=== PATIENT | male | born 1940 | race Caucasian/White ===

== ENCOUNTER → 2016-10-02 | Outpatient (CLI) | payer OTHER, BC ==
[~2016-10-02] MED LIST: ASPEC325 PO; FLVHFA220 INH; MEDLIST; METO25TA56 PO; Proventil HFA; SNG10 PO
--- NOTE | 2016-10-02 09:40 | DIAGNOSTIC IMAGING REPORT ---
TWO VIEW CHEST CLINICAL HISTORY: Cough. FINDINGS: PA and lateral chest radiographs are compared to study dated 06/19/2008. The cardiomediastinal silhouette is unremarkable. There is atherosclerotic calcification of the thoracic aorta. Emphysema and chronic interstitial thickening are similar to previous. There is no evidence of superimposed airspace consolidation or pleural effusion. There is no pneumothorax. The skeletal structures are osteopenic. The bony thorax appears intact. IMPRESSION: Emphysema with no acute cardiopulmonary abnormality. Electronically signed by: Cedric Guardado M.D. 10/02/2016 9:38 AM Dictated Date/Time: 10/02/2016 9:35 AM
== END | disposition home or self-care (01) ==
LOC: C.RAD1850 09:22
PROVIDERS: ATTEND Physician Assistant Medical
DX: R05 Cough (principal); J43.9 Emphysema, unspecified

== ENCOUNTER 2017-05-29 14:10 | Emergency (ER) | payer OTHER, BC ==
[~2017-05-29] VITALS: Ht 175.3 cm; Wt 68.0 kg
[2017-05-29 14:14] VITALS: Ht 175.3 cm; Wt 68.0 kg
--- NOTE | 2017-05-29 14:53 | DIAGNOSTIC IMAGING REPORT ---
PELVIS 1 OR 2 VIEW ROUTINE CLINICAL HISTORY: eval for fx trauma. Pain. COMPARISON: None. DISCUSSION: The bones and joint spaces appear intact. There is no evidence of fracture, dislocation or bony disease. There is no evidence for soft tissue swelling. IMPRESSION: Negative study. The above report was generated using voice recognition software. It may contain grammatical, syntax or spelling errors. Electronically signed by: Christopher Batista M.D. 05/29/2017 2:51 PM Dictated Date/Time: 05/29/2017 2:51 PM
--- NOTE | 2017-05-29 14:54 | DIAGNOSTIC IMAGING REPORT ---
L-SPINE MIN 4 VIEWS ROUTINE HISTORY: Trauma eval for fx COMPARISON: None. FINDINGS: There is no fracture. No subluxation. Moderate degenerative disc changes throughout. Moderate degenerative change posterior elements. IMPRESSION: Degenerative change. No acute process. The above report was generated using voice recognition software. It may contain grammatical, syntax or spelling errors. Electronically signed by: Christopher Batista M.D. 05/29/2017 2:53 PM Dictated Date/Time: 05/29/2017 2:52 PM
--- NOTE | 2017-05-29 15:01 | DIAGNOSTIC IMAGING REPORT ---
SACRUM COCCYX MIN 2 VIEWS CLINICAL HISTORY: Lower back pain status post fall. COMPARISON STUDY: CT of the abdomen and pelvis May 14, 2010. FINDINGS: Sacroiliac joints are intact. No fracture of the sacrum or coccyx is identified by radiography. IMPRESSION: No sacral or coccygeal fracture identified by radiography. Electronically signed by: Fredis Farmer M.D. 05/29/2017 3:00 PM Dictated Date/Time: 05/29/2017 2:58 PM
[2017-05-29 15:10] VITALS: BP 132/74; PULSE 72; TEMP 36.8; O2SAT 94
[2017-05-29] MEDS ORDERED: FLVHFA44 INH (15:29)
[2017-05-29] MEDS ORDERED: TAMS0.4C38 PO (15:29)
[2017-05-29] MEDS ORDERED: MONT1TAB3 PO (15:29)
[2017-05-29] MEDS ORDERED: FLUT0.15 (15:29)
[2017-05-29] MEDS ORDERED: ASPI81TA28 PO (15:29)
[2017-05-29] MEDS ORDERED: VNTHFA/IN INH (15:29)
[2017-05-29] MEDS ORDERED: ATOR-22 PO (15:29)
[2017-05-29] MEDS ORDERED: DILT60CA PO (15:29)
--- NOTE | 2017-05-30 13:28 | EMERGENCY ROOM VISIT NOTE ---
History Report prepared by Raj: Lynsey Moser Under the Supervision of: Dr. Kyle Robert M.D. First contact with patient: 14:17 Chief Complaint: FALL Stated Complaint: FALL -SHARP PAIN IN LOWER BACK History of Present Illness The patient is a 77 year old male who presents to the Emergency Room with complaints of persistent left lower back pain that occurred after a fall earlier today. The patient states that this morning he slipped on ice, noting he landed on his buttocks. He denies hitting his head or neck, having any abdominal or chest pain, and any numbness or weakness in his legs. The patient states he is not a smoker. Source of History: patient Onset: today Position: back (lower) Timing: other (persistent) Associated Symptoms: No neck pain, No chest pain, No abdominal pain, No weakness, No numbness Review of Systems See HPI for pertinent positives & negatives. A total of 10 systems reviewed and were otherwise negative. Past Medical & Surgical Medical Problems: (1) No Known Active Medical Problems Social History Smoking Status: Never Smoker Smokeless Tobacco Use: No Alcohol Use: none Drug Use: none Marital Status: Occupation Status: retired Current/Historical Medications Scheduled Aspirin (Aspirin Ec), 81 MG PO DAILY Atorvastatin (Lipitor), 20 MG PO DAILY Diltiazem Hcl (Diltiazem Hcl Er), 60 MG PO DAILY Fluticasone Propionate (Flovent Hfa), 1 PUFFS INH BID Montelukast Sodium (Singulair), 10 MG PO DAILY Tamsulosin Hcl (Flomax), 0.4 MG PO DAILY Scheduled PRN Albuterol Hfa (Ventolin Hfa), 2 PUFFS INH Q6H PRN for SOB/Wheezing Fluticasone Propionate (Nasal) (Flonase Allergy Relief), 2 SPRAYS NA DAILY PRN for Nasal Congestion Allergies Coded Allergies: No Known Allergies (Verified , 06/04/11) Physical Exam Vital Signs Date Time Temp Pulse Resp B/P (MAP) Pulse Ox O2 Delivery O2 Flow Rate FiO2 05/29/17 15:10 36.8 72 18 132/74 94 Room Air 05/29/17 14:14 36.5 72 18 129/72 95 Room Air Physical Exam Constitutional: Vital signs reviewed. Eyes: Pupils are equal round reactive to light. Conjunctiva are noninjected. ENT: Pharynx is clear without erythema or exudate. Mucous membranes are moist. Neck supple without meningeal signs. Respiratory: Clear to auscultation bilaterally. Breath sounds are equal bilaterally. Cardiovascular: Regular rate and rhythm. No rubs or gallops. GI: Soft, nondistended and nontender. Bowel sounds are present. Musculoskeletal: No midline tenderness to the lumbosacral spine. Mild tenderness to the left SI joint. No hip tenderness. Integumentary: No cyanosis. Neurological: The patient is awake and alert. No focal deficits. Motor and sensation are intact in lower extremities. Psychiatric: Normal affect. Medical Decision & Procedures ER Provider Diagnostic Interpretation: Radiology results as stated below per my review and the radiologist's interpretation: SACRUM COCCYX MIN 2 VIEWS CLINICAL HISTORY: Lower back pain status post fall. COMPARISON STUDY: CT of the abdomen and pelvis May 14, 2010. FINDINGS: Sacroiliac joints are intact. No fracture of the sacrum or coccyx is identified by radiography. IMPRESSION: No sacral or coccygeal fracture identified by radiography. Electronically signed by: Fredis Farmer M.D. 05/29/2017 3:00 PM L-SPINE MIN 4 VIEWS ROUTINE HISTORY: Trauma eval for fx COMPARISON: None. FINDINGS: There is no fracture. No subluxation. Moderate degenerative disc changes throughout. Moderate degenerative change posterior elements. IMPRESSION: Degenerative change. No acute process. The above report was generated using voice recognition software. It may contain grammatical, syntax or spelling errors. Electronically signed by: Christopher Batista M.D. 05/29/2017 2:53 PM PELVIS 1 OR 2 VIEW ROUTINE CLINICAL HISTORY: eval for fx trauma. Pain. COMPARISON: None. DISCUSSION: The bones and joint spaces appear intact. There is no evidence of fracture, dislocation or bony disease. There is no evidence for soft tissue swelling. IMPRESSION: Negative study. The above report was generated using voice recognition software. It may contain grammatical, syntax or spelling errors. Electronically signed by: Christopher Batista M.D. 05/29/2017 2:51 PM ED Course 1421: The patient was evaluated in room A10. A complete history and physical exam was performed. 1530: I reevaluated the patient, who was resting comfortably. 1556: Upon reevaluation, the patient appeared to have improvement of his symptoms. I discussed tonight's findings with him. The patient verbalized agreement of the treatment plan. He was discharged home. Medical Decision This is a 77-year-old male who presents with injuries after fall. Differential diagnosis includes contusion, compression fracture, intervertebral disc disease , sacroiliitis, pelvic fracture. I did perform a limited focused review of portions of the patient's old chart on the electronic medical record. The patient has had no recent pertinent visits to this hospital. I did evaluate the patient as noted above. The patient is presenting with low back pain after falling onto his buttocks. He slipped on ice. It was a mechanical fall. He denies any other injuries. He has no headache or neck pain. He is neurologically intact. I did order and personally review the patient's x-rays as described above. There is no evidence of fracture or dislocation. I did discuss the test results with the patient. I did recommend he follow closely with his doctor. Should he have persistent pain he may need repeat imaging or advanced imaging. He was discharged in good condition. Medication Reconcilliation Current Medication List: was personally reviewed by me Blood Pressure Screening Patient's blood pressure: Normal blood pressure Impression Primary Impression: Low back pain Additional Impression: Fall Scribe Attestation The scribe's documentation has been prepared under my direct and personally reviewed by me in its entirety. I confirm that the note above accurately reflects all work, treatment, procedures, and medical decision making performed by me. Departure Information Dispostion Home / Self-Care Referrals Paco Terrell M.D. (PCP) Forms HOME CARE DOCUMENTATION FORM, IMPORTANT VISIT INFORMATION Patient Instructions My [facility] Additional Instructions You have been examined and treated today on an emergency basis only. This is not a substitute for, or an effort to provide, complete comprehensive medical care. It is impossible to recognize and treat all injuries or illnesses in a single emergency department visit. It is therefore important that you follow up closely with your physician. Call as soon as possible for an appointment. Return for worsening symptoms or if you develop fever, vomiting, abdominal pain , loss of control of your bowel or bladder, numbness or weakness to your legs, numbness to your private area, difficulty urinating, or any other concerning symptoms. Problem Qualifiers Primary Impression: Low back pain Chronicity: acute Back pain laterality: left Sciatica presence: without sciatica Qualified Codes: M54.5 - Low back pain Additional Impression: Fall Encounter type: initial encounter Qualified Codes: W19.XXXA - Unspecified fall, initial encounter
== END 2017-05-29 15:56 | disposition home or self-care (01) ==
LOC: C.EDB 14:12 → C.EDA 15:56
DX: M54.5 Low back pain (principal); W19.XXXA Unspecified fall, initial encounter; Z79.82 Long term (current) use of aspirin

== ENCOUNTER → 2017-10-26 | Outpatient (CLI) | payer OTHER, BC ==
[~2017-10-26] MED LIST changes: -ASPEC325 PO; +ASPI81TA28 PO; +ATOR-22 PO; +DILT60CA PO; +FLUT0.15; -FLVHFA220 INH; +FLVHFA44 INH; -MEDLIST; -METO25TA56 PO; +MONT1TAB3 PO; -Proventil HFA; -SNG10 PO; +TAMS0.4C38 PO; +VNTHFA/IN INH
--- NOTE | 2017-10-26 13:21 | DIAGNOSTIC IMAGING REPORT ---
LEFT KNEE 4 VIEWS INCLUDING BILATERAL STANDING AP VIEWS CLINICAL HISTORY: LEFT KNEE PAIN COMPARISON: None. DISCUSSION: The bones are mildly osteopenic. There are mild osteoarthritic changes with mild medial joint compartment narrowing and small dorsal patellar spurs. No destructive lesions are evident. Note also is made of mild medial joint compartment narrowing of the contralateral right knee. IMPRESSION: 1. No acute fractures 2. Osteoarthritic changes. Electronically signed by: Sacha Wolff M.D. 10/26/2017 1:19 PM Dictated Date/Time: 10/26/2017 1:18 PM
== END | disposition home or self-care (01) ==
LOC: C.RDSM 13:10
PROVIDERS: ATTEND Family Medicine
DX: M25.562 Pain in left knee (principal)

== ENCOUNTER 2022-08-29 11:59 | Inpatient (IN) ==
[2022-08-29] MEDS ORDERED: SODIUM CHLORIDE 0.9% 500 ML IV SCH (13:45)
[2022-08-29] MEDS ORDERED: DIPHTHERIA/TETANUS/PERTUSSIS 0.5mL SYR/VIAL (Age 7+yrs) IM ONE (13:46)
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
[2022-08-29 14:31] LABS: Basophils # (auto) 0.03 K/uL (0-0.2); Basophils % (auto) 0.2 %; Eosinophils % (auto) 1.4 %; Hematocrit (blood only) 48.4 % (42.0-52.0); Hemoglobin 16.1 g/dl (14.0-18.0); Immature Granulocytes # (auto) 0.04 K/uL (0.01-0.20); Immature Granulocytes % (auto) 0.3 %; Lymphocytes # (auto) 0.93 K/uL (1.2-3.4); Lymphocytes % (auto) 6.4 %; Mean Corpuscular Hemoglobin 31.6 pg (25.0-34.0); Mean Corpuscular Hgb Conc 33.3 g/dL (32.0-36.0); Mean Corpuscular Volume 95.1 fL (80.0-100.0); Mean Platelet Volume 10.8 fL (9.4-12.4); Monocytes # (auto) 0.67 K/uL (0.11-0.59); Monocytes % (auto) 4.6 %; Neutrophils # (auto) 12.57 K/uL (1.40-6.50); Neutrophils % (auto) 87.1 %; Platelet Count 218 K/uL (130-400); RDW Coefficient of Variation 13.1 % (11.5-14.5); RDW Standard Deviation 46.5 fL (36.4-46.3); Red Blood Count 5.09 M/uL (4.70-6.10); White Blood Count 14.44 K/ul (4.8-10.8)
[2022-08-29 14:55] LABS: Alanine Aminotransferase 20 U/L (7-52); Albumin Globulin Ratio 1.3 (0.9-2); Albumin Level 4.5 gm/dl (3.4-5.0); Alkaline Phosphatase 78 U/L (34-104); Anion Gap 6 (3-11); Aspartate Aminotransferase 23 U/L (13-39); BUN Creatinine Ratio 11.2 (10-20); Bilirubin,Total 0.5 mg/dl (0.2-1.0); Blood Urea Nitrogen 12 mg/dl (6-23); Calcium 9.5 mg/dl (8.5-10.1); Carbon Dioxide 28 mmol/L (21-32); Chloride 109 mmol/L (98-107); Est GFR (African American) 75.1 ml/min; Est GFR (Non-African American) 64.8 ml/min; Globulin 3.4 gm/dl (2.5-4.0); Glucose 102 mg/dl (70-99(Fasting)); Potassium 3.9 mmol/L (3.5-5.1); Sodium 143 mmol/L (136-145); Total Protein 7.9 gm/dl (6.0-8.3)
[2022-08-29 15:01] LABS: INR 1.1 (0.9-1.1); Prothrombin Time 11.5 Seconds (9.0-12.0)
[2022-08-29] MEDS ORDERED: OPTIRAY 350 100ml IV ONE (15:20)
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
[2022-08-29 15:47] LABS: Appearance Urine Clear (Clear); Bilirubin Urine Negative (Negative); Blood Urine Negative (Negative); Color Urine Yellow; Glucose Urine UA Negative (Negative); Ketones Urine Negative (Negative); Leukocyte Esterase Urine Negative (Negative); Nitrite Urine Negative (Negative); Protein Urine Negative (Negative); Specific Gravity Urine 1.025 (1.000-1.030); Urobilinogen Urine Negative (Negative); pH Urine 7.5 (4.5-7.5)
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
[2022-08-29] MEDS ORDERED: LIDOCAINE/EPINEPHRINE 1% 20 ML VIAL ONE (16:23)
[2022-08-29] MEDS ORDERED: GELATIN SPONGE 12-7MM ONE (16:32)
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
--- NOTE | 2022-08-29 18:03 | CT Scan Report ---
LEFT KNEE CT CT DOSE: 157.19 mGy.cm HISTORY: Left knee pain. eval tibial plateau TECHNIQUE: Multiaxial CT images of the left knee were performed and reformatted in the sagittal and c oronal plane without the use of contrast. A dose lowering technique was utilized adhering to the lucia nciples of JONI. COMPARISON: Left knee radiograph 08/30/2019. FINDINGS: There is confirmation of a slightly depressed and comminuted fracture within the lateral ti bial plateau. This demonstrate up to 3 mm of depression centrally. No additional fractures identified . Small lucency at the lateral femoral condyle appears corticated and may be related to degenerative change. There is associated moderate lipohemarthrosis. Vascular calcifications are noted.. No disloca tion. IMPRESSION: 1. Confirmation of a slightly depressed and comminuted fracture at the lateral tibial plateau. 2. Moderate lipohemarthrosis. ACT 112: Negative or not required by law. Electronically signed by: Franklyn Carlisle M.D. 08/29/2022 6:01 PM
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
[2022-08-29] MEDS ORDERED: OPTIRAY 320 500ml IV ONE (18:51)
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
[2022-08-29] MEDS ORDERED: ASPIRIN 81 MG ECTAB PO STA (19:44)
[2022-08-29] MEDS: SODIUM CHLORIDE 0.9% 1000ML 1,000 ML IV SCH (20:37)
[2022-08-29] MEDS ORDERED: ACETAMINOPHEN 1,000 MG/100 ML VIAL IV PRN (20:53)
[2022-08-29] MEDS ORDERED: ALBUTEROL HFA 8 GM INHALER INH PRN (22:54)
--- NOTE | 2022-08-30 02:37 | Electrocardiogram Report ---
Test Reason : Blood Pressure : / mmHG Vent. Rate : 092 BPM Atrial Rate : 092 BPM P-R Int : 132 ms QRS Dur : 070 ms QT Int : 350 ms P-R-T Axes : 056 060 088 degrees QTc Int : 432 ms Poor data quality, interpretation may be adversely affected Normal sinus rhythm Normal ECG When compared with ECG of 09-MAY-2002 14:22, T wave amplitude has decreased in Anterior leads Confirmed by Darian Arrieta ([id number]) on 08/30/2022 2:37:05 AM Referred By: REFERRED SELF Confirmed By:Darian Arrieta
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
[2022-08-30 07:45] LABS: Basophils # (auto) 0.03 K/uL (0-0.2); Basophils % (auto) 0.4 %; Eosinophils # (auto) 0.09 K/uL (0-0.50); Eosinophils % (auto) 1.1 %; Hematocrit (blood only) 43.1 % (42.0-52.0); Hemoglobin 14.1 g/dl (14.0-18.0); Immature Granulocytes # (auto) 0.03 K/uL (0.01-0.20); Immature Granulocytes % (auto) 0.4 %; Lymphocytes # (auto) 0.74 K/uL (1.2-3.4); Lymphocytes % (auto) 9.2 %; Mean Corpuscular Hemoglobin 31.1 pg (25.0-34.0); Mean Corpuscular Hgb Conc 32.7 g/dL (32.0-36.0); Mean Corpuscular Volume 94.9 fL (80.0-100.0); Mean Platelet Volume 10.8 fL (9.4-12.4); Monocytes # (auto) 0.69 K/uL (0.11-0.59); Monocytes % (auto) 8.6 %; Neutrophils # (auto) 6.43 K/uL (1.40-6.50); Neutrophils % (auto) 80.3 %; Platelet Count 191 K/uL (130-400); RDW Coefficient of Variation 13.2 % (11.5-14.5); RDW Standard Deviation 46.3 fL (36.4-46.3); Red Blood Count 4.54 M/uL (4.70-6.10); White Blood Count 8.01 K/ul (4.8-10.8)
[2022-08-30] MEDS ORDERED: LABETALOL HCL IV 5 MG/ML 20ML IV PRN (08:11)
[2022-08-30 08:20] LABS: Albumin Globulin Ratio 1.5 (0.9-2); Albumin Level 3.7 gm/dl (3.4-5.0); BUN Creatinine Ratio 9.5 (10-20); Bilirubin,Total 0.6 mg/dl (0.2-1.0); Calcium 8.2 mg/dl (8.5-10.1); Creatinine Clr Calc Pharmacy 58.7 ml/min; Est GFR (African American) 86.7 ml/min; Est GFR (Non-African American) 74.8 ml/min; Globulin 2.5 gm/dl (2.5-4.0); Magnesium 1.6 mg/dl (1.7-2.4); Potassium 3.8 mmol/L (3.5-5.1); Total Protein 6.2 gm/dl (6.0-8.3)
[2022-08-30] MEDS: FLUTICASONE FUROATE 100MCG 14 PUFFS/INHALER INH SCH (08:36)
[2022-08-30] MEDS: MONTELUKAST SODIUM 10 MG TABLET PO SCH (08:46)
[2022-08-30] MEDS: ATORVASTATIN 20 MG TAB PO SCH (08:46)
[2022-08-30] MEDS: SODIUM CHLORIDE 0.9% 1000ML 1,000 ML IV SCH (09:23)
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
[2022-08-30] MEDS ORDERED: ACETAMINOPHEN 325 MG TAB PO PRN (13:08)
[2022-08-30] MEDS ORDERED: oxyCODONE HCL IR 5 MG TAB (IMMEDIATE RELEASE) PO PRN (13:08)
--- NOTE | 2022-08-30 17:01 | Billing Data ---
Date of Service August 30, 2022 Coding Level of Care Code 04459 SUB INP/OBS CARE MIN
[2022-08-30] MEDS: ASPIRIN 325 MG ECTAB PO SCH (21:00)
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
[2022-08-31 07:05] LABS: Basophils # (auto) 0.03 K/uL (0-0.2); Basophils % (auto) 0.4 %; Eosinophils # (auto) 0.38 K/uL (0-0.50); Eosinophils % (auto) 5.2 %; Hematocrit (blood only) 44.1 % (42.0-52.0); Hemoglobin 14.6 g/dl (14.0-18.0); Immature Granulocytes # (auto) 0.01 K/uL (0.01-0.20); Immature Granulocytes % (auto) 0.1 %; Lymphocytes % (auto) 12.3 %; Mean Corpuscular Hemoglobin 31.4 pg (25.0-34.0); Mean Corpuscular Hgb Conc 33.1 g/dL (32.0-36.0); Mean Corpuscular Volume 94.8 fL (80.0-100.0); Mean Platelet Volume 10.6 fL (9.4-12.4); Monocytes # (auto) 0.75 K/uL (0.11-0.59); Monocytes % (auto) 10.3 %; Neutrophils # (auto) 5.22 K/uL (1.40-6.50); Neutrophils % (auto) 71.7 %; Platelet Count 182 K/uL (130-400); RDW Coefficient of Variation 13.4 % (11.5-14.5); RDW Standard Deviation 46.8 fL (36.4-46.3); Red Blood Count 4.65 M/uL (4.70-6.10); White Blood Count 7.29 K/ul (4.8-10.8)
[2022-08-31 07:43] LABS: Albumin Globulin Ratio 1.3 (0.9-2); Albumin Level 3.7 gm/dl (3.4-5.0); BUN Creatinine Ratio 11.9 (10-20); Bilirubin,Total 0.6 mg/dl (0.2-1.0); Calcium 8.7 mg/dl (8.5-10.1); Creatinine Clr Calc Pharmacy 55.2 ml/min; Est GFR (African American) 80.5 ml/min; Est GFR (Non-African American) 69.4 ml/min; Globulin 2.8 gm/dl (2.5-4.0); Potassium 3.8 mmol/L (3.5-5.1); Total Protein 6.5 gm/dl (6.0-8.3)
[2022-08-31] MEDS: FLUTICASONE FUROATE 100MCG 14 PUFFS/INHALER INH SCH (08:25)
[2022-08-31] MEDS: MONTELUKAST SODIUM 10 MG TABLET PO SCH (08:26)
[2022-08-31] MEDS: ATORVASTATIN 20 MG TAB PO SCH (08:26)
--- NOTE | 2022-08-31 13:41 | Billing Data ---
Date of Service August 31, 2022 Coding Level of Care Code 93212 SUB INP/OBS CARE MIN
[2022-08-31] MEDS: ASPIRIN 325 MG ECTAB PO SCH (20:00)
[2022-09-01] MEDS: LACTATED RINGER'S 1,000 ML IV SCH ×2 (06:16→16:05)
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
[2022-09-01 07:35] LABS: Basophils # (auto) 0.01 K/uL (0-0.2); Basophils % (auto) 0.2 %; Eosinophils # (auto) 0.36 K/uL (0-0.50); Eosinophils % (auto) 5.6 %; Hemoglobin 14.5 g/dl (14.0-18.0); Immature Granulocytes # (auto) 0.02 K/uL (0.01-0.20); Immature Granulocytes % (auto) 0.3 %; Lymphocytes # (auto) 0.83 K/uL (1.2-3.4); Lymphocytes % (auto) 12.9 %; Mean Corpuscular Volume 94.2 fL (80.0-100.0); Mean Platelet Volume 10.4 fL (9.4-12.4); Monocytes % (auto) 10.9 %; Neutrophils # (auto) 4.52 K/uL (1.40-6.50); Neutrophils % (auto) 70.1 %; Platelet Count 185 K/uL (130-400); RDW Coefficient of Variation 13.1 % (11.5-14.5); RDW Standard Deviation 45.1 fL (36.4-46.3); Red Blood Count 4.67 M/uL (4.70-6.10); White Blood Count 6.44 K/ul (4.8-10.8)
[2022-09-01 08:02] LABS: Albumin Globulin Ratio 1.2 (0.9-2); Albumin Level 3.6 gm/dl (3.4-5.0); BUN Creatinine Ratio 11.9 (10-20); Bilirubin,Total 0.6 mg/dl (0.2-1.0); Calcium 8.5 mg/dl (8.5-10.1); Creatinine Clr Calc Pharmacy 55.6 ml/min; Est GFR (African American) 80.5 ml/min; Est GFR (Non-African American) 69.4 ml/min; Globulin 2.9 gm/dl (2.5-4.0); Potassium 3.6 mmol/L (3.5-5.1); Total Protein 6.5 gm/dl (6.0-8.3)
[2022-09-01] MEDS: MONTELUKAST SODIUM 10 MG TABLET PO SCH (08:08)
[2022-09-01] MEDS: ATORVASTATIN 20 MG TAB PO SCH (08:08)
[2022-09-01] MEDS: FLUTICASONE FUROATE 100MCG 14 PUFFS/INHALER INH SCH (08:08)
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
[2022-09-01] MEDS: SENNA 8.6 MG TAB PO SCH (17:13)
[2022-09-01] MEDS: ASPIRIN 325 MG ECTAB PO SCH (21:03)
--- NOTE | 2022-09-02 08:07 | Communication Note ---
Date of Service: September 02, 2022 Pt to undergo reimaging of neck via CTA in 3 months. Closer imaging not necessary unless new sx occur. Pt should remain on ASA at least until that time. Office will call pt to schedule.
[2022-09-02] MEDS: SENNA 8.6 MG TAB PO SCH (08:17)
[2022-09-02] MEDS: ATORVASTATIN 20 MG TAB PO SCH (08:17)
[2022-09-02] MEDS: MONTELUKAST SODIUM 10 MG TABLET PO SCH (08:17)
[2022-09-02] MEDS: FLUTICASONE FUROATE 100MCG 14 PUFFS/INHALER INH SCH (08:17)
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
[2022-09-02] MEDS: ASPIRIN 325 MG ECTAB PO SCH (21:39)
[2022-09-03 07:32] VITALS: BP 150/80; PULSE 71; TEMP 97.5; O2SAT 95
[2022-09-03] MEDS: FLUTICASONE FUROATE 100MCG 14 PUFFS/INHALER INH SCH (08:56)
[2022-09-03] MEDS: MONTELUKAST SODIUM 10 MG TABLET PO SCH (08:56)
[2022-09-03] MEDS: ATORVASTATIN 20 MG TAB PO SCH (08:56)
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
== END 2022-09-03 13:41 | DRG 551 ==
LOC: ED 11:59 → SUATTDRO 19:38 → 2S 19:38 → 3N 09-02 12:31

== ENCOUNTER 2022-09-20 14:30 | Inpatient (IN) ==
[2022-09-20] MEDS ORDERED: ONDANSETRON INJ 2 MG/ML 2 ML VIAL IV STA (15:52)
[2022-09-20 16:40] LABS: Basophils # (auto) 0.01 K/uL (0-0.2); Basophils % (auto) 0.1 %; Hematocrit (blood only) 46.2 % (42.0-52.0); Hemoglobin 15.2 g/dl (14.0-18.0); Immature Granulocytes # (auto) 0.03 K/uL (0.01-0.20); Immature Granulocytes % (auto) 0.3 %; Lymphocytes # (auto) 0.57 K/uL (1.2-3.4); Lymphocytes % (auto) 5.1 %; Mean Corpuscular Hgb Conc 32.9 g/dL (32.0-36.0); Mean Corpuscular Volume 94.1 fL (80.0-100.0); Mean Platelet Volume 10.6 fL (9.4-12.4); Monocytes # (auto) 0.73 K/uL (0.11-0.59); Monocytes % (auto) 6.6 %; Neutrophils % (auto) 87.9 %; Platelet Count 185 K/uL (130-400); RDW Coefficient of Variation 13.4 % (11.5-14.5); RDW Standard Deviation 46.3 fL (36.4-46.3); Red Blood Count 4.91 M/uL (4.70-6.10); White Blood Count 11.14 K/ul (4.8-10.8)
[2022-09-20 16:57] LABS: Creatinine Clr Calc Pharmacy 47.3 ml/min; Est GFR (African American) 70.3 ml/min; Est GFR (Non-African American) 60.6 ml/min; Magnesium 2.2 mg/dl (1.7-2.4)
[2022-09-20] MEDS ORDERED: OPTIRAY 320 500ml IV ONE (17:47)
[2022-09-20 18:20] LABS: Troponin I High Sensitivity 22.8 pg/ml (0-20)
--- NOTE | 2022-09-20 18:22 | CT Scan Report ---
CT ANGIOGRAPHY OF THE CHEST, PULMONARY EMBOLUS PROTOCOL CLINICAL HISTORY: Shortness of breath. Evaluate for pulmonary embolus. COMPARISON STUDY: Chest CT August 29, 2022. TECHNIQUE: Following IV administration of 114 mL of Optiray, helical axial images of the chest were o btained utilizing the pulmonary embolus protocol. Maximal intensity projections and sagittal and cor onal reformats were viewed on an independent 3D workstation. IV contrast was administered without co mplication. Automated exposure control was utilized for the study. A dose lowering technique was ut ilized adhering to the principles of ALARA. CT DOSE: 325.46 mGy.cm FINDINGS: Note is made of numerous acute appearing lobar and segmental bilateral pulmonary emboli. N o saddle pulmonary embolus is present. Emboli within the distal right pulmonary artery are also prese nt. There is no CT evidence for right heart strain. Size of the heart is normal. There is no thoracic aortic dissection. Prominent mediastinal lymph nodes are present. Moderate left lower lobe consolida tion has developed since CT of August 29, 2022. There is also moderate airspace opacity within the rig ht lower lobe which is new. There is no pleural effusion. No pneumothorax. IMPRESSION: 1. Numerous acute bilateral pulmonary emboli, as described above. Moderate embolus burden. 2. Interval development of bilateral lower lobe consolidation, greater on the left. The appearance fa vors pneumonia or aspiration pneumonitis rather than pulmonary infarcts. ACT 112: Negative or not required by law. Electronically signed by: Fredis Farmer M.D. 09/20/2022 6:20 PM
[2022-09-20] MEDS ORDERED: Heparin IV Adult Wt-Based Standard WITH Bolus Protocol IV STA (18:39)
[2022-09-20] MEDS ORDERED: AMPICILLIN/SULBACTAM SOD 3,000 MG in 0.9 % SODIUM CHLORIDE 100 ML IV STA (18:39)
[2022-09-20] MEDS ORDERED: HEPARIN SOD (PORCINE) 1000 UNIT/ML IV ONE (18:54)
[2022-09-20] MEDS: HEPARIN SODIUM/DEXTROSE 25,000 UNITS/500 ML BAG IV SCH (18:58)
[2022-09-20 18:59] LABS: INR 1.1 (0.9-1.1); Partial Thromboplastin Time 28.8 Seconds (21.0-31.0); Prothrombin Time 11.6 Seconds (9.0-12.0)
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
[2022-09-20] MEDS: cefTRIAXone SODIUM 2,000 MG in DEXTROSE 5% 50 ML IV SCH (21:37)
--- NOTE | 2022-09-20 22:11 | Electrocardiogram Report ---
Test Reason : Blood Pressure : / mmHG Vent. Rate : 107 BPM Atrial Rate : 107 BPM P-R Int : 136 ms QRS Dur : 066 ms QT Int : 316 ms P-R-T Axes : 080 078 077 degrees QTc Int : 421 ms Poor data quality, interpretation may be adversely affected Sinus tachycardia Otherwise normal ECG When compared with ECG of 29-AUG-2022 14:02, No significant change was found Confirmed by Darian Arrieta ([id number]) on 09/20/2022 10:10:33 PM Referred By: REFERRED SELF Confirmed By:Darian Arrieta
[2022-09-20] MEDS ORDERED: AZITHROMYCIN 500 MG in DEXTROSE 5% 250 ML IV ONE (22:30)
[2022-09-20] MEDS ORDERED: LABETALOL HCL IV 5 MG/ML 20ML IV PRN (23:03)
[2022-09-21 01:47] LABS: Partial Thromboplastin Ratio > 5.1
[2022-09-21 01:52] LABS: Partial Thromboplastin Time > 139.0 Seconds (21.0-31.0)
[2022-09-21 03:22] LABS: Hematocrit (blood only) 37.9 % (42.0-52.0); Hemoglobin 12.8 g/dl (14.0-18.0); Mean Corpuscular Hemoglobin 31.1 pg (25.0-34.0); Mean Corpuscular Hgb Conc 33.8 g/dL (32.0-36.0); Mean Corpuscular Volume 92.2 fL (80.0-100.0); Mean Platelet Volume 10.3 fL (9.4-12.4); Platelet Count 172 K/uL (130-400); RDW Coefficient of Variation 13.5 % (11.5-14.5); RDW Standard Deviation 46.2 fL (36.4-46.3); Red Blood Count 4.11 M/uL (4.70-6.10); White Blood Count 7.54 K/ul (4.8-10.8)
[2022-09-21 03:33] LABS: BUN Creatinine Ratio 20.8 (10-20); Calcium 7.9 mg/dl (8.6-10.3); Creatinine Clr Calc Pharmacy 51.6 ml/min; Est GFR (African American) 80.5 ml/min; Est GFR (Non-African American) 69.4 ml/min; Phosphorus 3.5 mg/dl (2.5-4.9); Potassium 3.6 mmol/L (3.5-5.1)
[2022-09-21 04:08] LABS: Partial Thromboplastin Ratio 3.5
[2022-09-21 04:24] LABS: Partial Thromboplastin Time 95.1 Seconds (21.0-31.0)
[2022-09-21 05:47] LABS: Partial Thromboplastin Ratio 1.7
[2022-09-21] MEDS ORDERED: FLUTICASONE HFA 220 MCG INHALER INH SCH (09:00)
[2022-09-21] MEDS ORDERED: AZITHROMYCIN 500 MG in DEXTROSE 5% 250 ML IV ONE (09:00)
[2022-09-21] MEDS: MONTELUKAST SODIUM 10 MG TABLET PO SCH (09:06)
[2022-09-21] MEDS: guaiFENesin 600 MG TABCR PO SCH ×2 (09:06→20:32)
[2022-09-21] MEDS: FLUTICASONE FUROATE 200MCG 14 PUFFS/INHALER INH SCH (09:06)
[2022-09-21] MEDS: ATORVASTATIN 20 MG TAB PO SCH (09:06)
--- NOTE | 2022-09-21 09:16 | XRay Report ---
XR knee LT 4V CLINICAL HISTORY: L tibial plateau fx, eval for interval change COMPARISON: Left knee radiographs and CT of the left knee August 29, 2022. FINDINGS: Note is again made of a subacute comminuted lateral tibial plateau fracture. Although subo ptimally assessed by radiography, fracture depression has likely mildly increased since prior exam, m easuring approximately 5 mm. Left knee joint effusion has decreased in size since prior exam. Left kn ee soft tissue swelling is present. Medial compartment osteophytosis is noted. IMPRESSION: 1. Redemonstration of a comminuted subacute lateral tibial plateau fracture with suspected mild incre ase in depression of the lateral tibial plateau. 2. Left knee soft tissue swelling. Left knee joint effusion, decreased in size since prior exam. ACT 112: Negative or not required by law. Electronically signed by: Fredis Farmer M.D. 09/21/2022 9:14 AM
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
[2022-09-21 11:24] LABS: Partial Thromboplastin Time 55.9 Seconds (21.0-31.0)
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
--- NOTE | 2022-09-21 12:47 | XCELERA ---
[id number]
--- NOTE | 2022-09-21 17:07 | XRay Report ---
XR cervical spine 2 or 3V CLINICAL HISTORY: Neck pain. COMPARISON STUDY: Cervical spine CT and CTA of the neck August 29, 2022. FINDINGS: This exam is mildly compromised given difficulty positioning. Reversal of the cervical lord osis is unchanged. Subacute fracture of the anterior inferior C6 vertebral body is noted. This was sh own on CT of August 29, 2022. Loss of height of the superior endplate of C7 is unchanged since that ex am. Moderate multilevel degenerative changes are present. No additional cervical spine fractures are identified radiography. IMPRESSION: 1. No acute cervical spine fracture or subluxation identified although evaluation suboptimal given di fficulty positioning. 2. Near-complete interval healing of the C6 vertebral body fracture shown on CT of August 29, 2022. 3. No change in the C7 vertebral body compression deformity. 4. Moderate multilevel degenerative changes within the cervical spine. ACT 112: Negative or not required by law. Electronically signed by: Fredis Farmer M.D. 09/21/2022 5:05 PM
[2022-09-21] MEDS: cefTRIAXone SODIUM 2,000 MG in DEXTROSE 5% 50 ML IV SCH (19:47)
[2022-09-21] MEDS ORDERED: AZITHROMYCIN 250 MG in DEXTROSE 5% 250 ML IV SCH (22:00)
[2022-09-22] MEDS: HEPARIN SODIUM/DEXTROSE 25,000 UNITS/500 ML BAG IV SCH (02:03)
[2022-09-22 06:32] LABS: Hematocrit (blood only) 36.1 % (42.0-52.0); Mean Corpuscular Hemoglobin 30.7 pg (25.0-34.0); Mean Corpuscular Hgb Conc 33.2 g/dL (32.0-36.0); Mean Corpuscular Volume 92.3 fL (80.0-100.0); Mean Platelet Volume 11.4 fL (9.4-12.4); Platelet Count 189 K/uL (130-400); RDW Coefficient of Variation 12.9 % (11.5-14.5); RDW Standard Deviation 43.6 fL (36.4-46.3); Red Blood Count 3.91 M/uL (4.70-6.10)
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
[2022-09-22 07:10] LABS: Partial Thromboplastin Ratio 2.1
[2022-09-22 07:27] LABS: Calcium 7.8 mg/dl (8.6-10.3); Creatinine Clr Calc Pharmacy 59.2 ml/min; Est GFR (African American) 92.5 ml/min; Est GFR (Non-African American) 79.8 ml/min; Potassium 3.3 mmol/L (3.5-5.1)
[2022-09-22 08:02] LABS: Partial Thromboplastin Time 57.3 Seconds (21.0-31.0)
[2022-09-22] MEDS: FLUTICASONE FUROATE 200MCG 14 PUFFS/INHALER INH SCH (08:32)
[2022-09-22] MEDS: MONTELUKAST SODIUM 10 MG TABLET PO SCH (08:33)
[2022-09-22] MEDS: guaiFENesin 600 MG TABCR PO SCH ×2 (08:33→20:14)
[2022-09-22] MEDS: ATORVASTATIN 20 MG TAB PO SCH (08:33)
[2022-09-22] MEDS ORDERED: AZITHROMYCIN 250 MG in DEXTROSE 5% 250 ML IV SCH (09:00)
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
--- NOTE | 2022-09-22 16:00 | Ultrasound Report ---
ULTRASOUND OF THE CAROTID ARTERIES CLINICAL HISTORY: History of carotid dissection.. COMPARISON STUDY: CT angiogram of the neck dated 08/29/2022. TECHNIQUE: Real-time, grayscale, and color Doppler sonography of the carotid arteries is performed. I mages are reviewed in the transverse and longitudinal planes. FINDINGS: The carotid arteries are patent bilaterally and demonstrate antegrade flow. There is no significant a therosclerotic plaque identify. Normal doppler arterial waveforms are seen throughout. A linear intra luminal filling defect the proximal left internal carotid artery likely corresponds to the dissection seen by CT on 08/29/2022. A component of the dissection is also likely seen within the proximal left external carotid artery. Velocity measurements are listed below. Common carotid peak systolic velocity (cm/sec): RIGHT: 102 LEFT: 50 ICA proximal peak systolic velocity (cm/sec): RIGHT: 47 LEFT: 36 ICA mid peak systolic velocity (cm/sec): RIGHT: 36 LEFT: 40 ICA distal peak systolic velocity (cm/sec): RIGHT: 58 LEFT: 57 ICA/CC peak systolic ratio: RIGHT: 0.9 LEFT: 1.1 Antegrade flow was shown in the vertebral arteries. The external carotid arteries are patent. IMPRESSION: 1. There is no sonographic evidence of hemodynamically significant stenosis in the right or left gutierrez tid arterial system. 2. Antegrade flow is shown in the vertebral arteries. 3. Linear filling defects within the proximal left internal and external carotid arteries likely joy espond to the dissection seen by CT on 08/29/2022. ACT 112: Negative or not required by law. Electronically signed by: Cedric Guardado M.D. 09/22/2022 3:58 PM
--- NOTE | 2022-09-22 17:36 | Billing Data ---
Date of Service September 22, 2022 Coding Level of Care Code 69626 SUB INP/OBS CARE MIN
--- NOTE | 2022-09-22 17:36 | Billing Data ---
Date of Service September 22, 2022 Coding Level of Care Code 81238 SUB INP/OBS CARE
[2022-09-22] MEDS: cefTRIAXone SODIUM 2,000 MG in DEXTROSE 5% 50 ML IV SCH (20:10)
[2022-09-22] MEDS: AZITHROMYCIN 250 MG TAB PO SCH (20:14)
[2022-09-23 06:22] LABS: Hematocrit (blood only) 36.5 % (42.0-52.0); Hemoglobin 12.4 g/dl (14.0-18.0); Mean Corpuscular Hemoglobin 30.8 pg (25.0-34.0); Mean Corpuscular Volume 90.6 fL (80.0-100.0); Mean Platelet Volume 10.7 fL (9.4-12.4); Platelet Count 273 K/uL (130-400); RDW Coefficient of Variation 12.9 % (11.5-14.5); RDW Standard Deviation 43.3 fL (36.4-46.3); Red Blood Count 4.03 M/uL (4.70-6.10); White Blood Count 6.63 K/ul (4.8-10.8)
[2022-09-23 06:42] LABS: BUN Creatinine Ratio 15.9 (10-20); Calcium 7.9 mg/dl (8.6-10.3); Creatinine Clr Calc Pharmacy 60.5 ml/min; Est GFR (African American) 93.4 ml/min; Est GFR (Non-African American) 80.6 ml/min; Phosphorus 2.9 mg/dl (2.5-4.9); Potassium 3.6 mmol/L (3.5-5.1)
[2022-09-23 07:02] LABS: Partial Thromboplastin Ratio 1.9
[2022-09-23 07:19] LABS: Partial Thromboplastin Time 53.2 Seconds (21.0-31.0)
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
[2022-09-23] MEDS ORDERED: HEPARIN STOP ORDER ONE (09:00)
[2022-09-23] MEDS: ATORVASTATIN 20 MG TAB PO SCH (09:04)
[2022-09-23] MEDS: MONTELUKAST SODIUM 10 MG TABLET PO SCH (09:04)
[2022-09-23] MEDS: FLUTICASONE FUROATE 200MCG 14 PUFFS/INHALER INH SCH (09:04)
[2022-09-23] MEDS: guaiFENesin 600 MG TABCR PO SCH ×2 (09:04→20:33)
[2022-09-23] MEDS: APIXABAN 5 MG TABLET PO SCH ×2 (09:04→20:33)
--- NOTE | 2022-09-23 17:46 | Billing Data ---
Date of Service September 23, 2022 Coding Level of Care Code 63553 SUB INP/OBS CARE MIN
[2022-09-23] MEDS: HEPARIN SODIUM/DEXTROSE 25,000 UNITS/500 ML BAG IV SCH (19:15)
[2022-09-23] MEDS: cefTRIAXone SODIUM 2,000 MG in DEXTROSE 5% 50 ML IV SCH (20:31)
[2022-09-23] MEDS: AZITHROMYCIN 250 MG TAB PO SCH (20:33)
[2022-09-24 06:21] LABS: Hematocrit (blood only) 37.4 % (42.0-52.0); Hemoglobin 12.4 g/dl (14.0-18.0); Mean Corpuscular Hemoglobin 30.8 pg (25.0-34.0); Mean Corpuscular Hgb Conc 33.2 g/dL (32.0-36.0); Mean Platelet Volume 9.7 fL (9.4-12.4); Platelet Count 319 K/uL (130-400); RDW Coefficient of Variation 13.3 % (11.5-14.5); RDW Standard Deviation 45.5 fL (36.4-46.3); Red Blood Count 4.02 M/uL (4.70-6.10); White Blood Count 6.88 K/ul (4.8-10.8)
[2022-09-24 06:33] LABS: BUN Creatinine Ratio 14.6 (10-20); Calcium 7.9 mg/dl (8.6-10.3); Creatinine Clr Calc Pharmacy 50.9 ml/min; Est GFR (African American) 78.6 ml/min; Est GFR (Non-African American) 67.8 ml/min; Magnesium 1.9 mg/dl (1.7-2.4); Phosphorus 2.4 mg/dl (2.5-4.9); Potassium 3.7 mmol/L (3.5-5.1)
[2022-09-24] MEDS: APIXABAN 5 MG TABLET PO SCH (08:38)
[2022-09-24] MEDS: ATORVASTATIN 20 MG TAB PO SCH (08:38)
[2022-09-24] MEDS: MONTELUKAST SODIUM 10 MG TABLET PO SCH (08:38)
[2022-09-24] MEDS: guaiFENesin 600 MG TABCR PO SCH (08:38)
[2022-09-24] MEDS: FLUTICASONE FUROATE 200MCG 14 PUFFS/INHALER INH SCH (08:39)
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
--- NOTE | 2022-09-24 19:53 | Billing Data ---
Date of Service September 24, 2022 Coding Level of Care Code 22558 IN/OBS DISCH 30 MIN/LESS
== END 2022-09-24 15:02 | DRG 175 ==
LOC: ED 14:30 → 4W 19:44 → SUATTDRO 19:44 → 4W 21:05